=== PATIENT | female | born 1985 | race American Indian/Alaskan Native ===

== ENCOUNTER 2019-06-08 18:53 | Emergency (ER) | payer OTHER ==
[2019-06-08 20:28] VITALS: BP 122/76
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
[2019-06-08 21:30] LABS: HCG Qualitative,Urine Positive (Negative)
[2019-06-08] MEDS ORDERED: TYLENOL ONE (21:35)
[2019-06-08] MEDS ORDERED: TYLENOL PO ONE (21:39)
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
== END 2019-06-08 23:00 | disposition left against medical advice (07) ==
LOC: ED 18:53
DX: O9A.211 Injury, poisoning and certain other consequences of external causes complicating pregnancy, first trimester (principal); S46.912A Strain of unspecified muscle, fascia and tendon at shoulder and upper arm level, left arm, initial encounter; O26.891 Other specified pregnancy related conditions, first trimester; R07.89 Other chest pain; Z90.89 Acquired absence of other organs; Z3A.01 Less than 8 weeks gestation of pregnancy; V49.49XA Driver injured in collision with other motor vehicles in traffic accident, initial encounter; Y93.89 Activity, other specified; Y92.410 Unspecified street and highway as the place of occurrence of the external cause; Y99.8 Other external cause status
CPT/HCPCS: 36415; 81025; 84702; 93005; 93010